=== PATIENT | male | born 1995 | race Two or more races ===

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

== ENCOUNTER 2017-03-25 17:44 | Emergency (ER) | payer MEDICAID ==
[~2017-03-25] VITALS: Ht 170.2 cm; Wt 63.0 kg
[2017-03-25 17:50] VITALS: BP 119/62
[2017-03-25] MEDS ORDERED: LIDOCAINE 1%, 20ML SQ ONE (18:00)
[2017-03-25] MEDS ORDERED: DIPH,PERTUSS(ACELL),TET VAC/PF 0.5 ML IM-VACC ONE (18:00)
== END 2017-03-25 18:41 | disposition home or self-care (01) ==
LOC: ED 18:35
DX: S91.115A Laceration without foreign body of left lesser toe(s) without damage to nail, initial encounter (principal); W45.8XXA Other foreign body or object entering through skin, initial encounter; Y93.89 Activity, other specified; Y92.009 Unspecified place in unspecified non-institutional (private) residence as the place of occurrence of the external cause; Y99.9 Unspecified external cause status
CPT/HCPCS: 12001; 99283

== ENCOUNTER 2018-02-24 22:25 | Emergency (ER) | payer MEDICAID ==
[~2018-02-24] VITALS: Ht 170.2 cm; Wt 67.8 kg
[2018-02-24] MEDS ORDERED: LORazepam 1MG TABLET ONE (22:59)
[2018-02-24] MEDS ORDERED: ALBUTEROL/IPRATROPIUM 2.5MG/0.5MG, 3 ML NPPB SCH (23:00)
[2018-02-24] MEDS ORDERED: LORazepam 1MG TABLET PO ONE (23:00)
[2018-02-24 23:52] VITALS: BP 128/76
== END 2018-02-25 00:04 | disposition home or self-care (01) ==
LOC: ED 23:59
DX: R06.00 Dyspnea, unspecified (principal); J20.9 Acute bronchitis, unspecified; R06.2 Wheezing
CPT/HCPCS: 71046; 93005; 94640; 99284; J7512; J7620